=== PATIENT | female | born 1990 | race Caucasian/White ===

== ENCOUNTER 2019-01-04 19:33 | Inpatient (IN) | payer MEDICAID, OTHER ==
[~2019-01-04] VITALS: Ht 162.6 cm; Wt 56.2 kg
[2019-01-04 19:59] LABS: URINE HCG NEGATIVE (NEG)
[2019-01-04 20:01] LABS: CLARITY,URINE CLEAR (Clear); COLOR,URINE YELLOW (Yellow); GLUCOSE, URINE NEGATIVE (Neg); KETONES,URINE TRACE mg/dl (Neg); LEUKOCYTE ESTERASE ,URINE NEGATIVE (Neg); NITRITES, URINE NEGATIVE (Neg); OCCULT BLOOD,URINE NEGATIVE (Neg); PH,URINE 6.5 (4.8-8.0); PROTEIN,URINE NEGATIVE (Neg)
[2019-01-04 20:10] LABS: UA COLLECTION TYPE VOIDED
[2019-01-04 20:27] LABS: BASOPHILS % (AUTO) 0.4 % (0-1); EOSINOPHILS % (AUTO) 0.4 % (0-6); HEMATOCRIT 32.3 % (35.0-45.0); HEMOGLOBIN 11.1 g/dl (12.0-16.0); LYMPHOCYTES # (AUTO) 3.4 X10'3 (1.1-4.8); LYMPHOCYTES % (AUTO) 58.4 % (21-51); MEAN CORPUSCULAR HEMOGLOBIN 29.8 PG (27.0-31.0); MEAN CORPUSCULAR HGB CONC 34.3 g/dL (33.0-36.5); MEAN PLATELET VOLUME 7.4 FL (7.4-10.4); MONOCYTES # (AUTO) 0.5 X10'3 (0-0.9); MONOCYTES % (AUTO) 8.2 % (2-12); NEUTROPHILS # (AUTO) 1.9 X10'3 (1.8-7.7); NEUTROPHILS % (AUTO) 32.6 % (42-75); PLATELET COUNT 208 X10'3 (140-440); RED BLOOD COUNT 3.71 X10'6 (4.20-5.60); WHITE BLOOD COUNT 5.9 X10'3 (4.5-11.0)
[2019-01-04] MEDS ORDERED: ondansetron 4mg rapidly disintigrating tab PO ONE (20:40)
[2019-01-04] MEDS ORDERED: mag hydrox/Alum hydrox/simeth 30ml oral suspension PO ONE (20:40)
[2019-01-04] MEDS ORDERED: famotidine 20mg tablet PO ONE (20:40)
[2019-01-04 20:43] LABS: ALANINE AMINOTRANSFERASE 23 U/L (12-78); ALBUMIN 2.9 G/DL (3.4-5.0); ALBUMIN/GLOBULIN RATIO 0.7 (1.1-1.5); ALKALINE PHOSPHATASE 80 IU/L (46-116); ANION GAP 7 (8-16); ASPARTATE AMINO TRANSFERASE 26 U/L (10-37); BLOOD UREA NITROGEN 16 MG/DL (7-18); CALCIUM 8.7 MG/DL (8.5-10.1); CHLORIDE 103 MMOL/L (99-107); CREATININE 0.84 MG/DL (0.40-0.90); GLUCOSE 100 MG/DL (70-104); LIPASE 157 U/L (73-393); POTASSIUM 3.8 MMOL/L (3.5-5.1); SODIUM 137 MMOL/L (135-145); TOTAL CARBON DIOXIDE 27.1 MMOL/L (24-32); TOTAL PROTEIN 7.1 G/DL (6.4-8.2); eGFR 80 ML/MIN
[2019-01-04] MEDS ORDERED: iohexol 300mg/ml 100ml inj. ONE (22:16)
[2019-01-04] MEDS ORDERED: morphine 2 MG/ML inj. syringe IV ONE (23:20)
[2019-01-04] MEDS ORDERED: NORG1TAB86 PO (23:21)
[2019-01-05] MEDS ORDERED: heparin 10,000 units/1 ML INJ IV PRN (00:15)
[2019-01-05] MEDS ORDERED: heparin 10,000 units/1 ML INJ IV ONE (00:15)
[2019-01-05] MEDS ORDERED: mag hydrox/Alum hydrox/simeth 30ml oral suspension PO PRN (00:35)
[2019-01-05] MEDS ORDERED: magnesium hydroxide 30ml (MOM) UD suspension PO PRN (00:35)
[2019-01-05] MEDS ORDERED: ondansetron/PF 4mg/2ml inj IV PRN (00:35)
[2019-01-05] MEDS ORDERED: morphine 2 MG/ML inj. syringe IV PRN (00:35)
[2019-01-05] MEDS ORDERED: acetaminophen 325mg tablet PO PRN (00:35)
[2019-01-05] MEDS: heparin 25,000 UNIT/250ml bag 250 ML IV SCH (01:49)
--- NOTE | 2019-01-05 02:00 | NUR ---
PATIENT ADMITTED TO ROOM 340B FROM ER FOR RIGHT PORTAL VEIN THROMBOSIS. PLACED COMFORTABLE IN BED. VITAL SIGNS TAKEN AND RECORDED.
--- NOTE | 2019-01-05 02:50 | NUR ---
CALLED DR. JAIMES AND WAS INFORMED ABOUT CRITICAL RESULT OF PTT 139 AND TOLD THAT IT WAS DRAWN JUST AN HOUR AFTER HEPARIN BOLUS WAS GIVEN AND 30 MINUTES AFTER HEPARIN DRIP WAS STARTED. MD ORDERED TO DISREGARD RESULT AND DRAW PTT AFTER 6 HOURS FROM HEPARIN DRIP WAS STARTED.
--- NOTE | 2019-01-05 02:50 | NUR ---
received critical ptt of 139 at 0235 for this patient. stopped heparin drip at 0240
[2019-01-05] MEDS: normal saline 1000ml 1,000 ML IV SCH (03:43)
[2019-01-05 04:17] VITALS: BP 117/77
[2019-01-05] MEDS: morphine 2 MG/ML inj. syringe IV PRN ×3 (04:20→15:15)
--- NOTE | 2019-01-05 04:20 | NUR ---
MORPHINE 2MG GIVEN IV SCANNED BUT NOT ABLE TO SAVE IT.
--- NOTE | 2019-01-05 06:30 | NUR ---
Problems reprioritized. Patient report given, questions answered & plan of care reviewed with JINA MONTE AND CARL MONTE.
--- NOTE | 2019-01-05 06:46 | NUR ---
Patient in room [facility]. I have received report from Dimple MONTE and had the opportunity to ask questions and assume patient care.
--- NOTE | 2019-01-05 06:52 | NUR ---
Patient in room [facility]. I have received report from KIM MONTE and had the opportunity to ask questions and assume patient care.
[2019-01-05 07:25] VITALS: BP 103/65
[2019-01-05 12:00] VITALS: BP 103/60
[2019-01-05] MEDS: HYDROcodone/acetaminophen 5mg/325mg tablet PO PRN ×2 (13:00→18:46)
[2019-01-05] MEDS ORDERED: diphenhydrAMINE 25mg capsule PO PRN ×2 (18:25)
--- NOTE | 2019-01-05 18:32 | NUR ---
Problems reprioritized. Patient report given, questions answered & plan of care reviewed with Dimple MONTE.
--- NOTE | 2019-01-05 18:35 | NUR ---
Patient in room [facility]. I have received report from JINA MONTE AND CARL RN and had the opportunity to ask questions and assume patient care.
[2019-01-05 20:28] VITALS: BP 109/66
[2019-01-06] VITALS (12 sets, daily range): BP systolic 87–106; BP diastolic 49–64
[2019-01-06] MEDS: morphine 2 MG/ML inj. syringe IV PRN (00:30)
[2019-01-06] MEDS: heparin 25,000 UNIT/250ml bag 250 ML IV SCH ×2 (00:41→07:08)
[2019-01-06 05:45] LABS: BASOPHILS % (AUTO) 0.5 % (0-1); EOSINOPHILS % (AUTO) 0.8 % (0-6); HEMATOCRIT 29.1 % (35.0-45.0); MEAN PLATELET VOLUME 7.5 FL (7.4-10.4); WHITE BLOOD COUNT 4.2 X10'3 (4.5-11.0)
[2019-01-06 05:49] LABS: LYMPHOCYTES # (AUTO) 2.5 X10'3 (1.1-4.8); LYMPHOCYTES % (AUTO) 58.9 % (21-51); MEAN CORPUSCULAR HEMOGLOBIN 30.4 PG (27.0-31.0); MEAN CORPUSCULAR HGB CONC 34.5 g/dL (33.0-36.5); MEAN CORPUSCULAR VOLUME 88.2 FL (78-98); MONOCYTES # (AUTO) 0.3 X10'3 (0-0.9); MONOCYTES % (AUTO) 7.6 % (2-12); NEUTROPHILS # (AUTO) 1.3 X10'3 (1.8-7.7); NEUTROPHILS % (AUTO) 32.2 % (42-75); PLATELET COUNT 181 X10'3 (140-440); RED CELL DISTRIBUTION WIDTH 13.4 % (11.5-14.5)
--- NOTE | 2019-01-06 06:30 | NUR ---
Problems reprioritized. Patient report given, questions answered & plan of care reviewed with RAIAS MONTE.
--- NOTE | 2019-01-06 06:30 | NUR ---
Patient in room [facility]. I have received report from Dimple MONTE and had the opportunity to ask questions and assume patient care.
[2019-01-06 06:42] LABS: ALANINE AMINOTRANSFERASE 23 U/L (12-78); ALBUMIN 2.6 G/DL (3.4-5.0); ALBUMIN/GLOBULIN RATIO 0.7 (1.1-1.5); ALKALINE PHOSPHATASE 68 IU/L (46-116); ANION GAP 8 (8-16); ASPARTATE AMINO TRANSFERASE 31 U/L (10-37); BILIRUBIN,TOTAL 0.6 MG/DL (0.1-1.0); BLOOD UREA NITROGEN 10 MG/DL (7-18); BUN/CREATININE RATIO 12.8 (6.6-38.0); CALCIUM 8.3 MG/DL (8.5-10.1); CHLORIDE 106 MMOL/L (99-107); CREATININE 0.78 MG/DL (0.40-0.90); GLUCOSE 95 MG/DL (70-104); POTASSIUM 4.3 MMOL/L (3.5-5.1); SODIUM 140 MMOL/L (135-145); TOTAL CARBON DIOXIDE 26.4 MMOL/L (24-32); TOTAL PROTEIN 6.2 G/DL (6.4-8.2); eGFR 87 ML/MIN
[2019-01-06] MEDS: HYDROcodone/acetaminophen 5mg/325mg tablet PO PRN ×5 (07:46→20:36)
--- NOTE | 2019-01-06 08:00 | NUR ---
Heparin gtt changes made per protocol, bolus of 2500u given by Leta MANCINI with ruibo and myself, Ricarda MONTE.
[2019-01-06] MEDS ORDERED: MIDAZolam 5mg/5ml vial ONE ×2 (08:42→10:02)
[2019-01-06] MEDS ORDERED: fentaNYL/PF 50MCG/1 ML 2ML syringe ONE (08:42)
[2019-01-06] MEDS ORDERED: LIDOcaine Viscous 15ml cup ONE (08:42)
[2019-01-06] MEDS: apixaban 5mg tablet PO SCH ×2 (13:00→20:38)
--- NOTE | 2019-01-06 13:34 | NUR ---
Administered an additional 5/325 [place] per MD order at 1245
[2019-01-07] VITALS: BP 100/55
[2019-01-07] MEDS: normal saline 1000ml 1,000 ML IV SCH (00:18)
[2019-01-07] MEDS: HYDROcodone/acetaminophen 5mg/325mg tablet PO PRN ×3 (00:18→10:06)
--- NOTE | 2019-01-07 05:58 | NUR ---
Problems reprioritized. Patient report given, questions answered & plan of care reviewed with LAVELL Chowdary. Addendum: 01/07/19 at 0559 by Ashlyn Taylor RN Strike from record - Change of groups
[2019-01-07 06:13] LABS: BASOPHILS % (AUTO) 0.3 % (0-1); EOSINOPHILS % (AUTO) 0.9 % (0-6); HEMATOCRIT 30.4 % (35.0-45.0); HEMOGLOBIN 10.4 g/dl (12.0-16.0); LYMPHOCYTES # (AUTO) 2.1 X10'3 (1.1-4.8); MEAN CORPUSCULAR HEMOGLOBIN 30.2 PG (27.0-31.0); MEAN CORPUSCULAR HGB CONC 34.4 g/dL (33.0-36.5); MEAN CORPUSCULAR VOLUME 87.9 FL (78-98); MEAN PLATELET VOLUME 7.5 FL (7.4-10.4); MONOCYTES # (AUTO) 0.3 X10'3 (0-0.9); MONOCYTES % (AUTO) 7.5 % (2-12); NEUTROPHILS # (AUTO) 1.5 X10'3 (1.8-7.7); NEUTROPHILS % (AUTO) 37.3 % (42-75); PLATELET COUNT 197 X10'3 (140-440); RED BLOOD COUNT 3.46 X10'6 (4.20-5.60); RED CELL DISTRIBUTION WIDTH 13.3 % (11.5-14.5); WHITE BLOOD COUNT 3.9 X10'3 (4.5-11.0)
--- NOTE | 2019-01-07 06:31 | NUR ---
Problems reprioritized. Patient report given, questions answered & plan of care reviewed with Jenna Bunch, Ziyad.
[2019-01-07 06:36] LABS: ALANINE AMINOTRANSFERASE 34 U/L (12-78); ALBUMIN 2.6 G/DL (3.4-5.0); ALBUMIN/GLOBULIN RATIO 0.7 (1.1-1.5); ALKALINE PHOSPHATASE 71 IU/L (46-116); ANION GAP 6 (8-16); ASPARTATE AMINO TRANSFERASE 43 U/L (10-37); BILIRUBIN,TOTAL 0.9 MG/DL (0.1-1.0); BLOOD UREA NITROGEN 11 MG/DL (7-18); BUN/CREATININE RATIO 13.3 (6.6-38.0); CHLORIDE 106 MMOL/L (99-107); CREATININE 0.83 MG/DL (0.40-0.90); GLUCOSE 97 MG/DL (70-104); POTASSIUM 4.1 MMOL/L (3.5-5.1); SODIUM 140 MMOL/L (135-145); TOTAL CARBON DIOXIDE 27.8 MMOL/L (24-32); TOTAL PROTEIN 6.2 G/DL (6.4-8.2); eGFR 81 ML/MIN
--- NOTE | 2019-01-07 06:50 | NUR ---
Patient in room [facility]. I have received report from Danisha Martinez RN and had the opportunity to ask questions and assume patient care.
--- NOTE | 2019-01-07 06:53 | NUR ---
Patient in room [facility]. I have received report from yemi Marquez RN and had the opportunity to ask questions and assume patient care.
[2019-01-07 07:07] LABS: PLATELET ESTIMATE NORMAL; TOTAL CELLS COUNTED 100
[2019-01-07 08:00] VITALS: BP 92/54
[2019-01-07] MEDS: apixaban 5mg tablet PO SCH (08:01)
[2019-01-07] MEDS ORDERED: HYDR-4383 PO (09:08)
[2019-01-07] MEDS ORDERED: ESOM40CA49 PO (09:08)
[2019-01-07] MEDS ORDERED: APIX5TAB3 PO (10:38)
--- NOTE | 2019-01-07 11:17 | NUR ---
Pt D/C'd home in stable conditions per MD orders. IV removed, discharge and meds instruction given to patient. Patient left hospital via private vehicle accompanied by friend.
[2019-01-08 09:19] LABS: HBSAG SCREEN Negative (Negative); HEPATITIS C ANTIBODY <0.1 s/co ratio (0.0-0.9)
[2019-01-08 11:12] LABS: ANTITHROMBIN ACTIVITY 96 % (75-135); ANTITHROMBIN ANTIGEN 85 % (72-124); PROTEIN S, FREE 62 % (57-157); PROTEIN S, TOTAL 55 % (60-150)
== END 2019-01-07 11:13 | disposition home or self-care (01) | DRG 279 ==
LOC: ER 19:34 → SUR 3N 01-05 02:05 → EDBEDREQ 01-05 02:10
PROVIDERS: ADMIT Internal Medicine; ATTEND Internal Medicine
PROC: BW211ZZ Computerized Tomography (CT Scan) of Abdomen and Pelvis using Low Osmolar Contrast (ICD-10-PCS; 2019-01-04)
PROC: 0DBA8ZX Excision of Jejunum, Via Natural or Artificial Opening Endoscopic, Diagnostic (ICD-10-PCS; principal; 2019-01-06)
PROC: 0DB68ZX Excision of Stomach, Via Natural or Artificial Opening Endoscopic, Diagnostic (ICD-10-PCS; 2019-01-06)
DX: I81 Portal vein thrombosis (principal); D68.59 Other primary thrombophilia; K27.9 Peptic ulcer, site unspecified, unspecified as acute or chronic, without hemorrhage or perforation; K80.20 Calculus of gallbladder without cholecystitis without obstruction; G89.29 Other chronic pain; R16.1 Splenomegaly, not elsewhere classified; T38.4X5A Adverse effect of oral contraceptives, initial encounter; M54.9 Dorsalgia, unspecified; K28.9 Gastrojejunal ulcer, unspecified as acute or chronic, without hemorrhage or perforation; Z56.0 Unemployment, unspecified; Z88.6 Allergy status to analgesic agent; Z79.01 Long term (current) use of anticoagulants; Z98.84 Bariatric surgery status; Y92.89 Other specified places as the place of occurrence of the external cause; Z88.4 Allergy status to anesthetic agent
CPT/HCPCS: 36415; 43239; 74177; 76700; 80053; 81003; 81025; 81479; 83690; 83891; 83894; 83898; 85025; 85300; 85301; 85303; 85305; 85306; 85610; 85730; 86146; 86147; 86803; 87081; 87340; 96374; 96375; 99152; 99285; A4620; G0378; J1644; J2250; J2270; J2405; J3010; J7030; Q0163; Q9967

== ENCOUNTER 2019-01-09 10:52 | Inpatient (IN) | payer MEDICAID ==
[~2019-01-09] VITALS: Ht 162.6 cm; Wt 63.9 kg
[~2019-01-09 10:52] MED LIST: APIX5TAB3 PO; ESOM40CA49 PO; HYDR-4383 PO; NORG1TAB86 PO
[2019-01-09 11:33] LABS: BASOPHILS % (AUTO) 0.6 % (0-1); EOSINOPHILS % (AUTO) 0.6 % (0-6); HEMATOCRIT 34.2 % (35.0-45.0); HEMOGLOBIN 11.6 g/dl (12.0-16.0); LYMPHOCYTES # (AUTO) 2.8 X10'3 (1.1-4.8); MEAN CORPUSCULAR HGB CONC 34.1 g/dL (33.0-36.5); MEAN PLATELET VOLUME 7.2 FL (7.4-10.4); MONOCYTES # (AUTO) 0.5 X10'3 (0-0.9); MONOCYTES % (AUTO) 9.8 % (2-12); NEUTROPHILS # (AUTO) 1.6 X10'3 (1.8-7.7); PLATELET COUNT 271 X10'3 (140-440); RED BLOOD COUNT 3.89 X10'6 (4.20-5.60); RED CELL DISTRIBUTION WIDTH 13.3 % (11.5-14.5); WHITE BLOOD COUNT 4.9 X10'3 (4.5-11.0)
[2019-01-09 11:44] LABS: PARTIAL THROMBOPLASTIN TIME 31 SECONDS (22-32)
[2019-01-09 11:47] LABS: ALANINE AMINOTRANSFERASE 100 U/L (12-78); ALBUMIN 3.1 G/DL (3.4-5.0); ALBUMIN/GLOBULIN RATIO 0.6 (1.1-1.5); ALKALINE PHOSPHATASE 93 IU/L (46-116); ANION GAP 9 (8-16); ASPARTATE AMINO TRANSFERASE 80 U/L (10-37); BILIRUBIN,TOTAL 0.8 MG/DL (0.1-1.0); BLOOD UREA NITROGEN 13 MG/DL (7-18); BUN/CREATININE RATIO 17.3 (6.6-38.0); CHLORIDE 106 MMOL/L (99-107); CREATININE 0.75 MG/DL (0.40-0.90); GLUCOSE 107 MG/DL (70-104); POTASSIUM 4.7 MMOL/L (3.5-5.1); SODIUM 141 MMOL/L (135-145); TOTAL CARBON DIOXIDE 26.3 MMOL/L (24-32); TOTAL PROTEIN 7.9 G/DL (6.4-8.2); eGFR > 90 ML/MIN
[2019-01-09 12:05] LABS: PLATELET ESTIMATE NORMAL; TOTAL CELLS COUNTED 100
[2019-01-09] MEDS ORDERED: iohexol 350MG/ML 100ml bottle IV ONE (14:16)
[2019-01-09] MEDS ORDERED: mag hydrox/Alum hydrox/simeth 30ml oral suspension PO PRN (16:10)
[2019-01-09] MEDS ORDERED: morphine 2 MG/ML inj. syringe IV PRN (16:10)
[2019-01-09] MEDS ORDERED: furosemide 20 MG/2 ML vial IV ONE (16:10)
[2019-01-09] MEDS ORDERED: ondansetron/PF 4mg/2ml inj IV PRN (16:10)
[2019-01-09] MEDS ORDERED: HYDROcodone/acetaminophen 5mg/325mg tablet PO PRN ×2 (16:10→18:30)
[2019-01-09] MEDS ORDERED: acetaminophen 325mg tablet PO PRN (16:10)
[2019-01-09] MEDS ORDERED: HYDROcodone/acetaminophen 10/325mg tab PO PRN (16:10)
[2019-01-09] MEDS ORDERED: magnesium hydroxide 30ml (MOM) UD suspension PO PRN (16:10)
[2019-01-09] MEDS ORDERED: ESOM40CA PO (16:23)
[2019-01-09] MEDS ORDERED: APIX5TAB3 PO (16:24)
[2019-01-09] MEDS ORDERED: HYDR-4383 PO (16:25)
--- NOTE | 2019-01-09 17:56 | NUR ---
Received report from LAVELL Elias, patient arrived on unit, Vitals taken, telemetry applied, will continue to monitor. Patient stable at this time.
[2019-01-09 18:02] VITALS: BP 117/74
--- NOTE | 2019-01-09 18:20 | NUR ---
Problems reprioritized. Patient report given, questions answered & plan of care reviewed with LAVELL Segura. Patient resting in bed, bed locked and low, call light in reach, stable at shift change.
--- NOTE | 2019-01-09 18:38 | NUR ---
Patient in room [facility] 3013. I have received report from LAVELL Quintero and had the opportunity to ask questions and assume patient care.
[2019-01-09 18:40] VITALS: BP 113/79
[2019-01-09] MEDS: morphine 2 MG/ML inj. syringe IV PRN ×2 (19:45→23:47)
[2019-01-09] MEDS: apixaban 5mg tablet PO SCH (19:45)
[2019-01-09 23:00] VITALS: BP 99/61
[2019-01-10 03:00] VITALS: BP 124/68
--- NOTE | 2019-01-10 05:28 | NUR ---
Patient refused lab draw. Labs retimed for 0900.
[2019-01-10 06:00] VITALS: BP 101/59
--- NOTE | 2019-01-10 06:04 | NUR ---
Problems reprioritized. Patient report given, questions answered & plan of care reviewed with LAVELL Quintero.
--- NOTE | 2019-01-10 06:27 | NUR ---
Patient in room PCU 3013. I have received report from LAVELL Segura and had the opportunity to ask questions and assume patient care. Patient currently sleeping in bed, bed locked and low, call light in reach, no acute distress, will continue to monitor.
[2019-01-10] MEDS: apixaban 5mg tablet PO SCH (07:18)
[2019-01-10] MEDS ORDERED: pantoprazole 40mg Tablet.DR PO SCH (07:30)
[2019-01-10 10:06] LABS: BASOPHILS % (AUTO) 0.4 % (0-1); EOSINOPHILS % (AUTO) 0.9 % (0-6); HEMATOCRIT 37.3 % (35.0-45.0); HEMOGLOBIN 12.4 g/dl (12.0-16.0); LYMPHOCYTES # (AUTO) 2.5 X10'3 (1.1-4.8); LYMPHOCYTES % (AUTO) 54.2 % (21-51); MEAN CORPUSCULAR HEMOGLOBIN 29.5 PG (27.0-31.0); MEAN CORPUSCULAR HGB CONC 33.2 g/dL (33.0-36.5); MEAN CORPUSCULAR VOLUME 88.6 FL (78-98); MEAN PLATELET VOLUME 7.3 FL (7.4-10.4); MONOCYTES # (AUTO) 0.4 X10'3 (0-0.9); MONOCYTES % (AUTO) 9.2 % (2-12); NEUTROPHILS # (AUTO) 1.7 X10'3 (1.8-7.7); NEUTROPHILS % (AUTO) 35.3 % (42-75); PLATELET COUNT 287 X10'3 (140-440); RED BLOOD COUNT 4.21 X10'6 (4.20-5.60); RED CELL DISTRIBUTION WIDTH 13.6 % (11.5-14.5); WHITE BLOOD COUNT 4.7 X10'3 (4.5-11.0)
[2019-01-10 10:24] LABS: ALANINE AMINOTRANSFERASE 92 U/L (12-78); ALBUMIN 3.2 G/DL (3.4-5.0); ALBUMIN/GLOBULIN RATIO 0.7 (1.1-1.5); ALKALINE PHOSPHATASE 87 IU/L (46-116); ANION GAP 8 (8-16); BILIRUBIN,TOTAL 0.8 MG/DL (0.1-1.0); BLOOD UREA NITROGEN 15 MG/DL (7-18); CHLORIDE 105 MMOL/L (99-107); CREATININE 0.79 MG/DL (0.40-0.90); GLUCOSE 88 MG/DL (70-104); SODIUM 139 MMOL/L (135-145); TOTAL CARBON DIOXIDE 26.3 MMOL/L (24-32); eGFR 86 ML/MIN
[2019-01-10 10:31] LABS: ASPARTATE AMINO TRANSFERASE 62 U/L (10-37); POTASSIUM 4.2 MMOL/L (3.5-5.1)
--- NOTE | 2019-01-10 11:26 | NUR ---
Patient became very agitated while being examined by Dr. Richards. Patient refused her ordered labs. Patient stated she just wanted to go home. Dr. Richards explaiend to her the potential outcomes for leaving AMA and patient persisted in wanting to leave. Nurse discussed the situation with patient and her friend who was at bedside, we walked with SPO2 and patient never had desaturation, HR did increase temporarily but then came back down to the 90s. Patient stated she has her eliquis at home from previous admission and she continued to insist she did not want the ordered lab work so she left AMA. IV removed, catheter tip intact, telemetry removed, belongings gathered and patient walked herself out of the hospital.
[2019-01-10 11:59] LABS: PLATELET ESTIMATE NORMAL; TOTAL CELLS COUNTED 100
== END 2019-01-10 11:04 | disposition left against medical advice (07) | DRG 279 ==
LOC: ER 10:53 → ED HOLD 16:15 → PCU 3S 17:55
PROVIDERS: ADMIT Internal Medicine; ATTEND Internal Medicine
PROC: B32T1ZZ Computerized Tomography (CT Scan) of Left Pulmonary Artery using Low Osmolar Contrast (ICD-10-PCS; principal; 2019-01-09)
PROC: B3201ZZ Computerized Tomography (CT Scan) of Thoracic Aorta using Low Osmolar Contrast (ICD-10-PCS; 2019-01-09)
PROC: B32S1ZZ Computerized Tomography (CT Scan) of Right Pulmonary Artery using Low Osmolar Contrast (ICD-10-PCS; 2019-01-09)
DX: I81 Portal vein thrombosis (principal); K76.6 Portal hypertension; R09.02 Hypoxemia; K27.9 Peptic ulcer, site unspecified, unspecified as acute or chronic, without hemorrhage or perforation; G89.29 Other chronic pain; M54.9 Dorsalgia, unspecified; Z79.01 Long term (current) use of anticoagulants; Z53.29 Procedure and treatment not carried out because of patient's decision for other reasons; Z86.711 Personal history of pulmonary embolism; Z87.11 Personal history of peptic ulcer disease; Z98.84 Bariatric surgery status
CPT/HCPCS: 36415; 71045; 71275; 80053; 83880; 84484; 85025; 85610; 85730; 93005; 93306; 93970; G0378; J1940; J2270; Q9967